=== PATIENT | female | born 2000 | race Caucasian/White ===

== ENCOUNTER 2022-06-10 11:07 | Emergency (ER) | payer OTHER ==
[2022-06-10 11:38] VITALS: BP 143/82; PULSE 103; RESP 18; TEMP 98.4; BMI 22.6
[2022-06-10] MEDS ORDERED: ACETAMINOPHEN 500 MG TABLET (FP) PO ONE (11:56)
== END 2022-06-10 14:18 | disposition home or self-care (01) ==
LOC: JER 11:07
DX: R05.1 Acute cough (principal); R51.9 Headache, unspecified
CPT/HCPCS: 0241U-QW; 99283-25